=== PATIENT | male | born 1945 | race Caucasian/White ===

== ENCOUNTER → 2018-01-12 12:55 | Outpatient (CLI) | payer MEDICARE, OTHER, SELFPAY ==
--- NOTE | 2018-01-12 | DI.RAD.S_ITS ---
PROCEDURE: XR THORACIC SPINE 3V INDICATIONS: SPINAL STENOSIS TECHNIQUE: 3 views of the thoracic spine were acquired. COMPARISON: [facility], CT, T-SPINE WITHOUT CONTRAST, 02/10/2011, 11:56. FINDINGS: Bones: No fractures or dislocations. No suspicious bony lesions. 12 pairs of ribs are noted, and appear intact where visualized. Soft tissues: No paravertebral stripe thickening. IMPRESSION: There has been mild interval worsening of degenerative disc disease along the thoracic spine when compared to the prior study from 02/10/11 (CT scanning). No compression fracture or subluxation has developed. Overall the degree of degeneration is mild to moderate. Dictated by: Hua Sparks M.D. on 01/12/2018 at 13:25 Approved by: Hua Sparks M.D. on 01/12/2018 at 13:27
== END ==
PROVIDERS: Family Provider Family Medicine; PCP Family Medicine; Visit Provider Chiropractor
DX: M48.04 Spinal stenosis, thoracic region (principal); M51.34 Other intervertebral disc degeneration, thoracic region
CPT/HCPCS: 72072

== ENCOUNTER → 2018-02-12 10:06 | Outpatient (CLI) | payer MEDICARE, OTHER, SELFPAY ==
[2018-02-12 11:20] LABS: Alanine Aminotransferase 33 IU/L (21-72); Albumin Globulin Ratio 1.5 (1.0-2.8); Alkaline Phosphatase 58 U/L (38-126); Aspartate Aminotransferase 20 IU/L (17-59); BUN Creatinine Ratio 21.2 (6-22); Bilirubin Total 0.7 mg/dL (0.2-1.3); Blood Urea Nitrogen 36 mg/dL (9-20); Calcium 9.6 mg/dL (8.4-10.2); Carbon Dioxide 27 mmol/L (22-32); Chloride 105 mmol/L (98-107); Globulin 2.6 g/dL (1.7-4.1); Glucose 136 mg/dL (80-110); HEMOLYSIS < 15 (0-50); Magnesium 2.2 mg/dL (1.6-2.3); Sodium 140 mmol/L (137-145); Total Protein 6.6 g/dL (6.3-8.2)
[2018-02-12 11:24] LABS: Potassium 5.4 mmol/L (3.4-5.1)
[2018-02-15 09:23] LABS: Lipoprofile NMR SEE SEPERATE REPORT
== END ==
PROVIDERS: PCP Family Medicine; Visit Provider Specialist
DX: E78.2 Mixed hyperlipidemia (principal); N28.9 Disorder of kidney and ureter, unspecified; I48.0 Paroxysmal atrial fibrillation
CPT/HCPCS: 36415; 80053; 80299; 83704; 83735

== ENCOUNTER → 2018-02-27 15:38 | Outpatient (CLI) | payer MEDICARE, OTHER, SELFPAY ==
[2018-02-27 18:26] LABS: Blood Urea Nitrogen 30 mg/dL (9-20); Calcium 9.6 mg/dL (8.4-10.2); Carbon Dioxide 28 mmol/L (22-32); Chloride 103 mmol/L (98-107); Estimated Glomerular Filt Rate 46.3 mL/min (>60); Glucose 104 mg/dL (80-110); HEMOLYSIS < 15 (0-50); Potassium 4.9 mmol/L (3.4-5.1); Sodium 141 mmol/L (137-145)
== END ==
PROVIDERS: Family Provider Family Medicine; PCP Family Medicine; Visit Provider Internal Medicine Cardiovascular Disease
DX: N28.9 Disorder of kidney and ureter, unspecified (principal)
CPT/HCPCS: 36415; 80048

== ENCOUNTER → 2018-11-23 10:06 | Outpatient (CLI) | payer MEDICARE, BC, SELFPAY ==
[2018-11-23 11:04] LABS: Reticulocyte Count, Percent 3.8 % (0.87-2.60)
[2018-11-23 11:06] LABS: Hematocrit 37.5 % (41-53); Hemoglobin 12.3 g/dL (13.5-17.5); Mean Corpuscular HGB Conc 32.7 % (30-36); Mean Corpuscular Hemoglobin 30.6 PG (26-34); Mean Corpuscular Volume 93.6 fL (80-100); Platelet Count 96 X10^3/uL (150-400); Red Cell Distribution Width 16.4 % (11.6-14.8); White Blood Cell Count 5.3 X10^3/uL (4.5-11.0)
[2018-11-23 11:10] LABS: Hemoglobin A1C% w Est Avg Glu 6.7 % (4.0-6.0)
[2018-11-23 11:35] LABS: Alanine Aminotransferase 24 IU/L (21-72); Albumin 3.9 g/dL (3.5-5.0); Albumin Globulin Ratio 1.4 (1.0-2.8); Alkaline Phosphatase 58 U/L (38-126); Aspartate Aminotransferase 22 IU/L (17-59); BUN Creatinine Ratio 22.9 (6-22); Bilirubin Total 0.5 mg/dL (0.2-1.3); Blood Urea Nitrogen 32 mg/dL (9-20); Calcium 9.5 mg/dL (8.4-10.2); Carbon Dioxide 26 mmol/L (22-32); Chloride 105 mmol/L (98-107); Globulin 2.7 g/dL (1.7-4.1); Glucose 164 mg/dL (80-110); HEMOLYSIS < 15 (0-50); Potassium 4.7 mmol/L (3.4-5.1); Sodium 140 mmol/L (137-145); Total Protein 6.6 g/dL (6.3-8.2)
[2018-11-23 11:44] LABS: Vitamin D 25 Hydroxy (D3) 54.1 ng/mL (30.0-100.0)
[2018-11-23 12:00] LABS: Ferritin 72.5 ng/mL (17.9-464)
[2018-11-26 10:59] LABS: Lipoprofile NMR SEE SEPERATE REPORT
[2018-11-27 14:53] LABS: Parathyroid Hormone Int 76 pg/mL (14-64)
== END ==
PROVIDERS: PCP Student in an Organized Health Care Education/Training Program; Visit Provider Specialist
DX: E78.2 Mixed hyperlipidemia (principal); I48.0 Paroxysmal atrial fibrillation; N18.9 Chronic kidney disease, unspecified; D64.9 Anemia, unspecified; E11.9 Type 2 diabetes mellitus without complications; N17.9 Acute kidney failure, unspecified
CPT/HCPCS: 36415; 80053; 80299; 82306; 82728; 83036; 83704; 83735; 83970; 85027; 85045

== ENCOUNTER → 2018-12-28 15:03 | Outpatient (CLI) | payer MEDICARE, BC, SELFPAY ==
--- NOTE | 2019-01-04 15:41 | PM.PFT.1 ---
Pulmonary Function Test Referral & Results Date Patient Seen: 12/28/18 Requesting provider: Daquan Ho Results: The spirometry demonstrates an FVC of 1.53 L which is 32% of predicted. The FEV1 was measured at 1.18 L which is 34% of predicted. The FEV1/FVC ratio was 77 which is 105% of predicted. Following the administration of bronchodilator there was a 70% improvement in FEV1 and is 72% improvement in FEF 25-75%. Lung volumes show an SVC of 1.68 L which is 34% of predicted. The diffusing capacity was measured at 18.52 which is 52% of predicted. No hemoglobin value was provided, so no correction for potential anemia could be made, if appropriate. The maximum voluntary ventilation was reduced Interpretation: This study demonstrates severe obstructive lung disease with evidence of benefit following bronchodilator as noted above There is also severe restrictive lung disease based on reduction in SVC There is also moderately severe reduction in diffusing capacity suggesting significant disease of the capillary alveolar level
== END ==
PROVIDERS: PCP Student in an Organized Health Care Education/Training Program; Visit Provider Student in an Organized Health Care Education/Training Program
DX: G47.33 Obstructive sleep apnea (adult) (pediatric) (principal); J44.9 Chronic obstructive pulmonary disease, unspecified; R68.89 Other general symptoms and signs
CPT/HCPCS: 94060; 94726; 94729

== ENCOUNTER → 2019-03-08 08:56 | Outpatient (CLI) | payer MEDICARE, BC, SELFPAY ==
[2019-03-08 09:52] LABS: Alanine Aminotransferase 20 IU/L (21-72); Albumin Globulin Ratio 1.3 (1.0-2.8); Alkaline Phosphatase 59 U/L (38-126); Aspartate Aminotransferase 22 IU/L (17-59); BUN Creatinine Ratio 23.6 (6-22); Bilirubin Total 0.7 mg/dL (0.2-1.3); Blood Urea Nitrogen 33 mg/dL (9-20); Calcium 9.6 mg/dL (8.4-10.2); Carbon Dioxide 28 mmol/L (22-32); Chloride 105 mmol/L (98-107); Cholesterol 97 mg/dL (140-199); Glucose 146 mg/dL (80-110); HDL Cholesterol 30 mg/dL (40-60); HEMOLYSIS < 15 (0-50); LDL Cholesterol Calculated 53 mg/dL (<100); Magnesium 2.1 mg/dL (1.6-2.3); Potassium 4.8 mmol/L (3.4-5.1); Sodium 141 mmol/L (137-145); Triglycerides 72 mg/dL (35-150)
== END ==
PROVIDERS: Family Provider Student in an Organized Health Care Education/Training Program; PCP Student in an Organized Health Care Education/Training Program; Visit Provider Specialist
DX: E78.2 Mixed hyperlipidemia (principal); I48.0 Paroxysmal atrial fibrillation; N28.9 Disorder of kidney and ureter, unspecified
CPT/HCPCS: 36415; 80053; 80061; 83735

== ENCOUNTER → 2019-03-11 13:15 | Outpatient (CLI) | payer MEDICARE, BC, SELFPAY ==
--- NOTE | 2019-03-11 13:21 | DI.CT.S_ITS ---
PROCEDURE: CT LUMBAR SPINE WO CON INDICATIONS: Low back and bilateral leg radicular pain TECHNIQUE: Noncontrast 3 mm thick sections acquired from the T12 level to the sacrum. Sagittal and coronal reformats were constructed. For radiation dose reduction, the following was used: automated exposure control. COMPARISON: [facility], CT, LUMBAR OR SACRAL SPINE WO CONT, 12/09/2010, 11:16. [facility], CR, XR THORACIC SPINE 3V, 01/12/2018, 12:49. FINDINGS: Image quality: Excellent. Bones: This patient has transitional lumbar anatomy. For the purposes of this examination, the transitional level is considered to be L5, which is highly sacralized on the left. By this numbering scheme, there are vestigial ribs at the T12 level. This numbering scheme is chosen to remain consistent with 2011 examination. There is accentuated lumbar lordosis. There is minimal retrolisthesis at T12-L1 and L1-L2. No acute vertebral body compression fractures. No suspicious lytic or blastic bony lesions. Central spinal caliber is of normal overall caliber. No pars defects. T12-L1: Moderate loss of disc height is seen. Vacuum disc phenomenon is seen at this level. Moderate disc bulge is seen. There is a central disc protrusion present. Gjlp-vk-aqnldibw bilateral neural foraminal narrowing is seen. Mild central canal narrowing is seen. When comparison is made with the prior examination, these findings are similar. L1-L2: Moderate loss of disc height is seen. Vacuum disc phenomenon is seen at this level. Moderate generalized disc bulge is seen. Moderate to severe bilateral neural foraminal narrowing is seen. These imaging findings have progressed compared to the prior study. L2-L3: The disc height is well preserved. Moderate generalized disc bulge is seen. Txmg-ix-fynrlelc bilateral neural foraminal narrowing is seen. Moderate central canal narrowing is seen. These imaging findings have progressed compared to the prior study. L3-L4: The disc height is well-preserved. Loss of disc signal is seen at this level. At least moderate disc bulge is seen. Moderate to severe bilateral neural foraminal narrowing is seen. Moderate to severe central canal narrowing is seen. These imaging findings have progressed compared to the prior study. L4-L5: The disc height is well preserved. Moderate disc bulge is seen. Moderate facet hypertrophy is seen, left worse than right. Moderate to severe central canal narrowing is seen. These imaging findings have progressed compared to the prior study. L5-S1: There is a transitional disc seen at this level. A degree of fusion can be seen. Moderate bilateral neural foraminal narrowing is seen. Mild central canal narrowing is seen. When comparison is made with the prior examination, these findings are similar. Soft tissues: No retroperitoneal masses or hematomas. Visualized aorta is normal in caliber. Atherosclerotic calcification is noted. A pacer lead can be seen on the private equity associate image. IMPRESSION: Multiple levels of lumbar spine degenerative change are seen, which have progressed compared to 2011. Incidental note is made of: Transitional lumbar anatomy Pacer device Dictated by: Logan Amador M.D. on 03/11/2019 at 12:58 Approved by: Logan Amador M.D. on 03/11/2019 at 13:05
== END ==
PROVIDERS: PCP Student in an Organized Health Care Education/Training Program; Visit Provider Student in an Organized Health Care Education/Training Program
DX: M47.816 Spondylosis without myelopathy or radiculopathy, lumbar region (principal); M54.42 Lumbago with sciatica, left side; M54.41 Lumbago with sciatica, right side
CPT/HCPCS: 72131

== ENCOUNTER 2019-03-28 13:24 | Day surgery (SDC) | payer MEDICARE, BC, SELFPAY ==
--- NOTE | 2019-03-28 | PATH_ITS ---
[facility] Accession Number: [id number] . 01 Material submitted: . PART A: colon - COLON POLYP AT 100CM PART B: colon - COLON POLYP AT 25CM . 02 Diagnosis: A. Colon, Polyp at 100 cm, Biopsy: Tubular adenoma. . B. Colon, Polyp at 25 cm, Biopsy: Hyperplastic polyp. MRV/04/01/2019 . 02 Electronically signed: . Waleska Romero MD, Pathologist NPI- [id number] . 01 Gross description: . Part A: COLON POLYP AT 100CM: Received in formalin is 1 fragment(s) of huang, soft tissue measuring 0.4 x 0.4 x 0.3 cm submitted entirely in 1 cassette(s) Part B: COLON POLYP AT 25CM: Received in formalin are 2 fragment(s) of huang, soft tissue measuring 0.4 x 0.3 x 0.3 cm to 0.3 x 0.2 x 0.1 cm submitted entirely in 1 cassette(s) /CKI /CKI . 02 Pathologist provided ICD-10: D12.6 . 02 CPT . 447372, [id number] Performed at: 01 [facility] [address], [place], [place] [id number] MD Tejinder Barger MD Phone: [phone] Performed at: 02 [facility] [place] [address] [place], [place] [id number] MD Waleska Romero MD Phone: [phone]
[2019-03-28] MEDS: FLEETS ENEMA 1 EACH PR ×2 (14:04→14:20)
--- NOTE | 2019-03-28 14:07 | SUR.PREOP ---
Output in toilet dark cloudy with many brown flecks, dr ivey informed fleets enema given.
--- NOTE | 2019-03-28 14:43 | PM.HP.1 ---
History of Present Illness History of Present Illness Date Patient Seen: 03/28/19 Time Patient Seen: 14:43 Chief complaint: [id number] Narrative: Patient presents for colorectal screening. They had a previous colonoscopy 10 years ago which was normal. On further history denies any recent gastrointestinal symptoms. No nausea, vomiting, abdominal pain, loss of appetite, unexplained weight loss, change in bowel habits, diarrhea, constipation, melena, hematochezia, or bright red blood per rectum. Patient History Medical History Fatigue (Chronic) Obstructive sleep apnea of adult (Chronic) Pacemaker (Chronic) Surgical History History of cochlear implant History of cochlear implant History of cochlear implant Social History marital status: details: terry Patton, lives in [place] household members: spouse lives independently: Yes caregiver/support person: No housing: house occupational status: previously employed travel history: recent Smoking Status: Former smoker alcohol intake: current substance use type: does not use Family & Social History Social History: household members spouse lives independently Yes caregiver/support person No Tobacco & Substance use: Smoking Status Former smoker alcohol intake current Meds Home Medications and Allergies Home Medications Medication Instructions Recorded Confirmed Type Eliquis 5 mg PO BID #30 11/05/16 03/28/19 Rx flecainide 50 mg PO BID #60 tab 11/05/16 03/28/19 Rx magnesium oxide 400 mg PO DAILY #0 11/05/16 03/28/19 History metoprolol tartrate 25 mg PO BID #0 11/05/16 03/28/19 History calcium carbonate 1,000 mg PO QDAY #0 02/15/17 03/28/19 History cholecalciferol (vitamin D3) 400 u PO Q DAY #0 02/17/17 03/28/19 History [Vitamin D3] docusate sodium 100 mg PO Q DAY #0 02/17/17 03/28/19 History benazepril 10 mg tablet 10 mg PO QDAY #90 tab 02/02/18 03/28/19 Rx simvastatin 20 mg PO Q DAY #90 tab 02/05/18 03/28/19 Rx albuterol sulfate 90 mcg/actuation 1 puff INHALATION Q6H PRN #6.7 gram 01/29/19 03/28/19 Rx aerosol inhaler budesonide 90 mcg/actuation breath 1 inhalation INHALATION BID #1 each 01/29/19 03/06/19 Rx activated powder inhaler [employer] Dream[employer] CPAP #1 ea 03/26/19 03/26/19 History Allergies Allergy/AdvReac Type Severity Reaction Status Date / Time Penicillins [PENICILLINS] Allergy Unknown HIVES Verified 03/06/19 14:33 Review of Systems Review of Systems ROS Unobtainable: All systems reviewed & are unremarkable except as noted in HPI and below Exam Narrative Exam Narrative: General-adult male no acute distress, well nourished HEENT-moist mucous membranes, no scleral icterus Neck-supple with full range of motion, no lymphadenopathy Chest- no labored respirations, clear to auscultation bilaterally Cardiac-regular rate and rhythm Abdomen-soft, nontender, non distended Extremities-no edema, warm well perfused Neurological-alert and oriented x 3. No focal deficits Skin-normal temperature and turgor, no rashes or ulcers Assessment & Plan Assessment and plan (1) Screening for colorectal cancer: Current visit: Yes Status: Acute Assessment & Plan narrative: Patient is requiring colorectal screening. Colonoscopy is recommended. Technical details were discussed. Risks, benefits, alternatives explained. Risks including but not limited to sedation, aspiration, bleeding, pain, missed lesion, incomplete examination, need for further radiographic studies, colonic perforation, need for major abdominal surgery, and all attendant risks major surgery were discussed at length. All questions were answered to their satisfaction, and they voiced understanding.
[2019-03-28] MEDS: SODIUM CHLORIDE 0.9% 1,000 ML 200 ML IV (14:45)
[2019-03-28 14:53] VITALS: BP 105/67; PULSE 60; RESP 20; TEMP 36.6; O2SAT 97; BMI 46.7
--- NOTE | 2019-03-28 15:07 | SUR.PREOP ---
still not clear after first enema, 2nd on given, output still coudy but better and still with brown flecks. Dr. Montanez aware.
[2019-03-28] MEDS: MIDAZOLAM 5 MG/5 ML VIAL IV (16:13)
[2019-03-28] MEDS: fentaNYL 250 MCG/5 ML INJ IV (16:13)
--- NOTE | 2019-03-28 16:14 | PM.OP.ENDO ---
Operative Date/Time/Diagnoses Date of procedure: 03/28/19 Time of procedure: 16:14 Pre-op diagnosis: Screening colonoscopy Post-op diagnosis: same Procedure & Clinicians Study performed: Colonoscopy Same procedure as scheduled: Yes Indications: 73-year-old male presents for screening colonoscopy. The last colonoscopy was 10 years ago a normal per the patient. Surgeon: Delfino Montanez Procedure Notes SCOAP/Timeout: Performed Procedure in detail: Digital rectal exam was performed which demonstrated no masses. The scope was carefully inserted into the rectum. Scope was advanced through the colon. The ileocecal valve was reached. The scope was then carefully withdrawn. We identified a polyp at 100 cm which was benign in appearance in less than 1 cm was biopsied. The 2nd colonic polyp at 25 cm from the anal verge was biopsied this polyp was also less than 1 cm and benign appearance. The scope was then retroflexed within the rectum which was normal in its appearance. The scope was then carefully withdrawn. The quality of the prep was medium. Patient tolerated the procedure well Scope withdrawal time: 13 Sedation minutes: 36 Findings: polyp Specimen(s): other (polyp 100 cm, polyp 25 cm) Complications: none Impression: Polyps Post-procedure Recommendations: Colonscopy in 5 years Disposition: same day surgery
[2019-03-28 16:18] VITALS: BP 108/61; PULSE 62; RESP 18; TEMP 36.4; O2SAT 94
[2019-03-28 16:27] VITALS: BP 122/71; PULSE 61; RESP 12; TEMP 36.8; O2SAT 94
[2019-03-28 16:55] VITALS: BP 97/62; PULSE 62; RESP 16; TEMP 36.3; O2SAT 95
[2019-03-28 17:05] VITALS: BP 109/66; PULSE 62; RESP 18; TEMP 36.6; O2SAT 95
== END 2019-03-28 17:17 | disposition home or self-care (01) ==
PROVIDERS: PCP Student in an Organized Health Care Education/Training Program; Visit Provider Surgery
PROC: 0DJD8ZZ Inspection of Lower Intestinal Tract, Via Natural or Artificial Opening Endoscopic (ICD-10-PCS; CPT 45378; principal; 2019-03-28 15:00)
DX: Z12.11 Encounter for screening for malignant neoplasm of colon (principal); D12.6 Benign neoplasm of colon, unspecified; G47.33 Obstructive sleep apnea (adult) (pediatric); Z95.0 Presence of cardiac pacemaker
CPT/HCPCS: 45380; 99152; 99153; J2250; J3010

== ENCOUNTER → 2019-12-19 10:59 | Outpatient (CLI) | payer MEDICARE, BC, SELFPAY ==
[2019-12-19 13:24] LABS: Alanine Aminotransferase 25 IU/L (<50); Albumin 4.2 g/dL (3.5-5.0); Albumin Globulin Ratio 1.4 (1.0-2.8); Alkaline Phosphatase 62 U/L (38-126); Aspartate Aminotransferase 31 IU/L (17-59); Bilirubin Total 0.8 mg/dL (0.2-1.3); Blood Urea Nitrogen 34 mg/dL (9-20); Calcium 9.7 mg/dL (8.4-10.2); Carbon Dioxide 29 mmol/L (22-32); Chloride 105 mmol/L (98-107); Estimated Glomerular Filt Rate 46.7 mL/min (>60); Globulin 2.9 g/dL (1.7-4.1); Glucose 130 mg/dL (80-110); HEMOLYSIS < 15 (0-50); Magnesium 2.2 mg/dL (1.6-2.3); Potassium 5.3 mmol/L (3.4-5.1); Sodium 140 mmol/L (137-145); Total Protein 7.1 g/dL (6.3-8.2)
[2019-12-23 08:08] LABS: Cholesterol, Total 102 mg/dL (100-199); HDL-Cholesterol 39 mg/dL (>39); HDL-Particle (Total) 23.6 umol/L (>=30.5); Historical Reading Comment: (.); LDL Particle 616 nmol/L (<1000); LDL-Cholsterol 44 mg/dL (0-99); LP-IR Score 54 (<=45); Small LDL- Particle 408 nmol/L (<=527); Triglycerides 94 mg/dL (0-149)
== END ==
PROVIDERS: PCP Student in an Organized Health Care Education/Training Program; Referring Provider Specialist; Visit Provider Specialist
DX: I48.0 Paroxysmal atrial fibrillation (principal); E78.2 Mixed hyperlipidemia
CPT/HCPCS: 36415; 80053; 80061; 80299; 83704; 83735

== ENCOUNTER → 2020-01-14 09:44 | Outpatient (CLI) | payer MEDICARE, BC, SELFPAY ==
[2020-01-14 12:03] LABS: BUN Creatinine Ratio 24.1 (6-22); Blood Urea Nitrogen 34 mg/dL (9-20); Calcium 9.6 mg/dL (8.4-10.2); Carbon Dioxide 29 mmol/L (22-32); Chloride 108 mmol/L (98-107); Estimated Glomerular Filt Rate 49.4 mL/min (>60); Glucose 159 mg/dL (80-110); HEMOLYSIS < 15 (0-50); Potassium 4.8 mmol/L (3.4-5.1); Sodium 141 mmol/L (137-145)
== END ==
PROVIDERS: PCP Student in an Organized Health Care Education/Training Program; Referring Provider Nurse Practitioner; Visit Provider Nurse Practitioner
DX: N18.9 Chronic kidney disease, unspecified (principal); E78.2 Mixed hyperlipidemia
CPT/HCPCS: 36415; 80048

== ENCOUNTER → 2020-05-26 09:31 | Outpatient (CLI) | payer MEDICARE, BC, SELFPAY ==
--- NOTE | 2020-05-26 | DI.ECHO.S_ITS ---
[place] [facility]---------+ [facility] +---------+ : : [id number] : : : : [id number] : : : : Phone: [phone] Echocardiogram Report + + :Name: FRANCIS NG Study Date: 05/26/2020 Height: 72 in : :[facility] Weight: 334 lb : : Gender: Male BSA: 2.6 m2 : :: 1945 Age: 75 yrs BP: 126/81 mmHg: :Reason For Study: DYSPNEA : :Ordering Physician: MATHEW, : :DIVINE WEIR Performed By: Rhina Villegas : :Referring: DIVINE CARMONA : + + Interpretation Summary Left ventricular systolic function appears normal with an estimated ejection fraction of 60 to 65% without any focal wall motion abnormality and appears slightly more dynamic compared to the previous study. There is borderline LVH but probable normal diastolic function and normal left ventricular filling pressures. The right ventricle is borderline enlarged with normal systolic function and grossly appears unchanged from the previous study. Right ventricular systolic pressure is estimated at 48 mmHg based on a CVP of around 15 mmHg, the latter unchanged from the previous study. There is mild left atrial enlargement that is slightly smaller compared to the previous study, and borderline right atrial enlargement. There is no significant valvular abnormality. The ascending aorta and aortic arch are mildly enlarged but likely similar to the previous study. Procedure: A two-dimensional transthoracic echocardiogram with color flow and Doppler was performed. The study quality was technically adequate. There is no prior echocardiogram noted for this patient. Comparison is made with the echocardiogram of 12/06/2016. The patient was in sinus rhythm with heart rates between 60-62 bpm during the exam. Left Ventricle: The left ventricle is normal in size. The estimated left ventricular end diastolic volume is 100 ml. There is borderline concentric left ventricular hypertrophy. Left ventricular systolic function appears normal without focal wall motion abnormalities. The ejection fraction is estimated to be 55-60%. This is slightly more dynamic compared to the previous study. Diastolic parameters suggest probable normal left ventricular diastolic function and normal filling pressures. Right Ventricle: The right ventricle is not well visualized. The right ventricle is borderline dilated. The right ventricular systolic function is normal. This is unchanged compared to the previous study. Atria: The left atrium is mildly dilated. The left atrium has mildly decreased in size since the prior echo exam. The right atrium is borderline dilated. There is no Doppler evidence for an interatrial shunt. Mitral Valve: The mitral valve is normal in structure and function. There is trace mitral regurgitation. Aortic Valve: The aortic valve is trileaflet. The aortic valve is slightly calcified. The aortic valve opens well. There is no aortic valve stenosis. No aortic regurgitation is present. Tricuspid Valve: The tricuspid valve is normal in structure and function. There is trace tricuspid regurgitation. The right ventricular systolic pressure is estimated to be at least 48 mmHg based on an estimated right atrial pressure of 15 mm Hg. Pulmonic Valve: The pulmonic valve leaflets are thin and pliable; valve motion is normal. There is trace pulmonic regurgitation. There is no significant valvular heart disease. Great Vessels: The aortic root is normal size. The ascending aorta is mildly enlarged. The aortic arch is mildly enlarged. This is unchanged compared to the previous study. The IVC is dilated (diameter is greater than 2.1 cm) and it collapses less than 50% with a sniff. This suggests a high right atrial pressure of 15 mm Hg. Pericardium/ Pleura There is no pericardial effusion. There is an anterior echo-free space consistent with a fat pad. There is no pleural effusion. MMode/2D Measurements & Calculations LVIDd: 5.8 cm LVOT diam: 2.1 cm LVIDs: 3.6 cm Ao root diam: 3.5 cm FS: 36.7 % asc Aorta Diam: 3.8 cm EPSS: 0.46 cm Ao Arch Diam (Prox Trans): 3.5 cm IVSd: 1.1 cm LVPWd: 1.0 cm LV knight. diameter/BSA (cm/m^2): 2.2 LV sys. diameter/BSA (cm/m^2): 1.4 LA A2 area: 29.0 cm2 RA long axis: 5.7 cm LA A4 area: 24.1 cm2 RA area: 22.5 cm2 LA length (vol): 6.2 cm RA vol: 76.3 ml LA vol: 95.8 ml RA : 28.8 ml/m2 LA vol index: 36.2 ml/m2 IVC diam: 2.8 cm RVD1 (basal): 4.1 cm TAPSE: 2.3 cm Doppler Measurements & Calculations Ao V2 max: 132.8 cm/sec LVOT Max Eddie: 91.7 cm/sec Ao V2 mean: 88.8 cm/sec LV V1 max P.4 mmHg Ao max P.1 mmHg LV V1 VTI: 24.6 cm Ao mean P.6 mmHg KRZYSZTOF(I,D): 2.9 cm2 Ao V2 VTI: 29.7 cm KRZYSZTOF(V,D): 2.4 cm2 sev ratio: 0.83 KRZYSZTOF indexed to BSA (cm^2/m^2): 1.1 MV E max eddie: 67.8 cm/sec TR max eddie: 276.0 cm/sec MV A max eddie: 52.2 cm/sec TR max P.3 mmHg MV E/A: 1.3 PA V2 max: 62.5 cm/sec Med Peak E' Eddie: 7.3 cm/sec PA V2 mean: 40.9 cm/sec E/E' med: 9.3 PA mean P.77 mmHg Lat Peak E' Eddie: 9.4 cm/sec PA Accel Time: 0.07 sec E/E' lat: 7.2 E/e' average: 8.2 MV dec time: 0.22 sec SV(LVOT): 86.9 ml Reading Physician:05:34 PM
== END ==
PROVIDERS: PCP Student in an Organized Health Care Education/Training Program; Referring Provider Nurse Practitioner; Visit Provider Nurse Practitioner
DX: R06.00 Dyspnea, unspecified (principal); I77.89 Other specified disorders of arteries and arterioles
CPT/HCPCS: 93306

== ENCOUNTER → 2020-06-30 16:03 | Outpatient (CLI) | payer MEDICARE, BC, SELFPAY ==
[2020-06-30 18:56] LABS: Alanine Aminotransferase 23 IU/L (<50); Albumin 3.9 g/dL (3.5-5.0); Albumin Globulin Ratio 1.6 (1.0-2.8); Alkaline Phosphatase 62 U/L (38-126); Aspartate Aminotransferase 28 IU/L (17-59); BUN Creatinine Ratio 28.9 (6-22); Bilirubin Total 0.5 mg/dL (0.2-1.3); Blood Urea Nitrogen 39 mg/dL (9-20); Calcium 9.3 mg/dL (8.4-10.2); Carbon Dioxide 29 mmol/L (22-32); Chloride 106 mmol/L (98-107); Estimated Glomerular Filt Rate 51.8 mL/min (>60); Globulin 2.5 g/dL (1.7-4.1); Glucose 93 mg/dL (80-110); HEMOLYSIS < 15 (0-50); Potassium 5.2 mmol/L (3.4-5.1); Sodium 139 mmol/L (137-145); Total Protein 6.4 g/dL (6.3-8.2)
== END ==
PROVIDERS: PCP Student in an Organized Health Care Education/Training Program; Visit Provider Specialist
DX: N18.9 Chronic kidney disease, unspecified (principal); E78.2 Mixed hyperlipidemia
CPT/HCPCS: 36415; 80053

== ENCOUNTER → 2020-10-20 13:04 | Outpatient (CLI) | payer MEDICARE, BC, SELFPAY ==
--- NOTE | 2020-10-20 13:10 | DIET.PN ---
Addendum entered by Leyda Vega 12/01/20 16:56: Pt holds new diagnosis of Chronic Kidney Disease stage 3, pts calorie and protein goals reflect this diagnosis. Nutrition Diagnosis: altered nutrition related laboratory values (eGFR, Cr) r/t nutrition related knowledge deficit aeb eGFR 51.8, Cr 1.35, pt holds new dx CKD3, pt referred by PCP to nutrition for help with safe, renal friendly weight loss to prepare for orthopedic surgery. Original Note: Dietary Progress Note Assessment: has spinal stenosis, surgeon will not operate until body weight is 295# or less currently around 337#, did get down to 327# but quickly gained 10#. PCP concerned about fluid retentions and getting lab work done and meeting c multi sensor operator December 17. Pt eats virtually no processed foods, he likes to cook and eat different things. Pt using [email or web address] and is a numbers gamaliel likes to put numbers in. Usual Day: wakes 8am makes pot coffee Breakfast: every other day makes oatmeal 1.5c adds milk, 1tsp brown sugar alternate days 3 fried eggs cooked in butter c 2 pieces toast on monday makes waffles (butter and syrup) or hashbrowns and eggs takes nap Lunch: doesn't usually eat lunch 5pm 1 cup [place] chex meal c 1 brown sukhdev Dinner: Tuesdays papa murphys pizza, spaghetti, meat potato vegetable, fish once per week with rice and vegetable was waking up at 2am to eat- usually tortilla c youngblood and chicken breast c fizzy water reports not being good water drinker Pt has PT appts and is doing some exercises while brushing teeth but should be riding stationary bike for 5 min at a time but doesn't always do this. HT: 6' WT: 337# BMI: 43 Labs: eGFR 51.8 L, Cr 1.35 H, A1c 6.7 RD Impression: Over the past several months pt has downloaded [email or web address] and was using it with some success set at 2500kcals. Pt eats a diet which is moderately processed but mostly home cooked, he likes vegetables and variety. Pt is overconsuming carbohydrate portions without pairing with protein or f/v such as 1.5c oatmeal for breakfast or daily snack of chex mix c a beer. Pts limited mobility and spinal stenosis limits his physical activity. Pt given new parameters for 2300 kcals/d and 120g PRO (0.8g/kg per CKD3) with focus on plate balance. This with continued bouts of PT and exercise (5 min on bike as prescribed) should give pt the 1-2#/w loss that he desires. Nutrition Diagnosis: undesirable food choices r/t nutrition related knowledge deficit aeb pt focused solely on caloric intake without regard to carbs/proteins/micronutrients for adequate body function, pt has hx of yoyo dieting, BMI 43, pt cannot have spinal surgery without losing 40#. Interventions: 1. Calculated pts kcal needs to lose 1-2#/w at 2,300. Pt will set this in his myfitness pal. 2. Introduced pt to plate balance where 1/4 pro, 1/4 cho, and 1/2 F/non-starchy veg. Using food models, problem solved several meals and snacks including reducing oatmeal portion and adding ground flaxseed, chopped nuts, and frozen berries. 3. Provided pt structured cardiometabolic meal plan for ideas on types and portions of food to eat. Because pt is an adventurous eater and likes to cook, this is preferred to specific meal ideas. 4. Provided pt variety of handouts to support his efforts includinkcal snack ideas, anti-inflammatory diet info from , and FOTM-seeds. 5. Encouraged pt to become more structured on his physical activity trying for 5 minutes on stationary bike in am and 5min in pm per PT reccs. This will help him build lean body mass to support his core and metabolism. Diet Order: anti-inflammatory EER: 2300kcals, 120g PRO Monitoring/Evaluations: pt will f/u as needed
[2020-10-20 13:32] VITALS: BMI 45.7
== END ==
PROVIDERS: PCP Student in an Organized Health Care Education/Training Program; Referring Provider Student in an Organized Health Care Education/Training Program; Visit Provider Student in an Organized Health Care Education/Training Program
DX: M48.061 Spinal stenosis, lumbar region without neurogenic claudication (principal); E66.9 Obesity, unspecified; Z68.41 Body mass index [BMI] 40.0-44.9, adult; Z71.3 Dietary counseling and surveillance
CPT/HCPCS: 97802

== ENCOUNTER → 2020-10-20 13:05 | Outpatient (CLI) | payer MEDICARE, BC, SELFPAY ==
[2020-10-20 15:50] LABS: BUN Creatinine Ratio 29.6 (6-22); Blood Urea Nitrogen 40 mg/dL (9-20); Calcium 9.8 mg/dL (8.4-10.2); Carbon Dioxide 31 mmol/L (22-32); Chloride 103 mmol/L (98-107); Estimated Glomerular Filt Rate 51.8 mL/min (>60); Glucose 101 mg/dL (80-110); HEMOLYSIS 17 (0-50); Potassium 4.9 mmol/L (3.4-5.1); Sodium 139 mmol/L (137-145)
== END ==
PROVIDERS: PCP Student in an Organized Health Care Education/Training Program; Referring Provider Student in an Organized Health Care Education/Training Program; Visit Provider Student in an Organized Health Care Education/Training Program
DX: E11.9 Type 2 diabetes mellitus without complications (principal); N18.9 Chronic kidney disease, unspecified; M48.061 Spinal stenosis, lumbar region without neurogenic claudication; E66.9 Obesity, unspecified; Z68.41 Body mass index [BMI] 40.0-44.9, adult; Z71.3 Dietary counseling and surveillance
CPT/HCPCS: 36415; 80048; 97802

== ENCOUNTER → 2020-12-18 15:42 | Outpatient (CLI) | payer MEDICARE, BC, SELFPAY ==
[2020-12-18 16:49] LABS: Add Manual Diff / Slide Review NO; Basophils Absolute Auto 100 /uL (0-100); Basophils Percent Auto 1.4 % (0-2); Eosinophils Absolute Auto 100 /uL (0-450); Eosinophils Percent Auto 1.2 % (2-4); Hematocrit 41.7 % (41-53); Hemoglobin 13.4 g/dL (13.5-17.5); Lymphocytes Absolute Auto 900 /uL (1100-4500); Lymphocytes Percent Auto 14.4 % (25-40); Mean Corpuscular HGB Conc 32.1 % (30-36); Mean Corpuscular Volume 93.3 fL (80-100); Monocytes Absolute Auto 200 /uL (0-900); Neutrophils Absolute Auto 4800 /uL (1500-7000); Platelet Count 88 X10^3/uL (150-400); Red Blood Cell Count 4.47 X10^6/uL (4.5-5.9); White Blood Cell Count 5.9 X10^3/uL (4.5-11.0)
[2020-12-18 17:04] LABS: HEMOLYSIS < 15 (0-50)
[2020-12-18 17:05] LABS: BUN Creatinine Ratio 24.3 (6-22); Blood Urea Nitrogen 33 mg/dL (9-20); Calcium 9.5 mg/dL (8.4-10.2); Carbon Dioxide 28 mmol/L (22-32); Chloride 103 mmol/L (98-107); Estimated Glomerular Filt Rate 51.4 mL/min (>60); Glucose 131 mg/dL (80-110); Phosphorous 3.6 mg/dL (2.3-3.7); Potassium 4.8 mmol/L (3.4-5.1); Sodium 140 mmol/L (137-145)
[2020-12-18 17:46] LABS: Vitamin D 25 Hydroxy (D3) 57.4 ng/mL (30.0-100.0)
[2020-12-18 17:58] LABS: TSH w/ Reflex to FT4 1.19 uIU/mL (0.47-4.68)
[2020-12-19 05:42] LABS: Parathyroid Hormone Int 93 pg/mL (15-65)
[2020-12-19 17:27] LABS: Free Kappa Lt Chains, Serum 39.8 mg/L (3.3-19.4); Free Lambda Lt Chains,Serum 25.2 mg/L (5.7-26.3)
[2020-12-22 15:39] LABS: Albumin 3.8 g/dL (2.9-4.4); Alpha-1-Globulin 0.3 g/dL (0.0-0.4); Alpha-2-Globulin 0.7 g/dL (0.4-1.0); Globulin Total 2.8 g/dL (2.2-3.9); Immunoglobulin A, Serum 136 mg/dL (61-437); Immunoglobulin G,Serum 984 mg/dL (603-1613); Immunoglobulin M, Serum 56 mg/dL (15-143); Protein, Total 6.6 g/dL (6.0-8.5)
== END ==
PROVIDERS: PCP Student in an Organized Health Care Education/Training Program; Referring Provider Internal Medicine Nephrology; Visit Provider Internal Medicine Nephrology
DX: R60.9 Edema, unspecified (principal); N18.31 Chronic kidney disease, stage 3a
CPT/HCPCS: 36415; 80069; 82306; 82784; 83883; 83970; 84155; 84165; 84443; 85025; 86334

== ENCOUNTER → 2020-12-23 10:46 | Outpatient (CLI) | payer MEDICARE, BC, SELFPAY ==
--- NOTE | 2020-12-23 11:40 | PM.TREADMILL ---
Cardiac Stress Test Report Referral & Results Date Patient Seen: 12/23/20 Time Patient Seen: 11:40 Requesting provider: Luciano Cruz Indication: paroxysmal atrial fibrillation Rest ECG: atrial paced rhythm Procedure Note: After Lexsican injection had minimal dyspnea; no chest discomfort No significant ST changes on EKG after Lexiscan injection No ectopy Impression: Normal Lexsican stress test Please note: Actual ECG tracings can be found in the PACS system.
--- NOTE | 2020-12-24 18:21 | DI.NM.S_ITS ---
PROCEDURE PERFORMED: Pharmacologic vasodilator stress and rest myocardial perfusion imaging with gating to assess ejection fraction and regional wall motion. DATE OF SERVICE: December 23, 2020 ORDERING PROVIDER: Luciano Cruz MD INDICATIONS: The patient is a 75-year-old obese male with paroxysmal atrial fibrillation, on flecainide, who requires periodic survey for ischemic heart disease. CARDIAC STRESS: Per protocol, 0.4 mg of ragadenosine was injected with a normal hemodynamic response. He had no chest discomfort. His resting ECG shows atrially paced rhythm with [place] conduction with normal ST segments. There are no significant ST-segment shifts or arrhythmias with stress. Per protocol, 25.3 millicuries of technetium-99m Myoview was injected and he was imaged 15 minutes later using a gated SPECT acquisition protocol. The following day, he was reinjected with an additional 25.8 millicuries of technetium-99m Myoview and imaged 30 minutes later using a gated SPECT acquisition protocol. FINDINGS: RAW DATA: There is marginal left ventricular tracer uptake because of his obesity with fairly poor image quality. There is clear diaphragmatic attenuation with some shadowing of the inferior wall by the spleen. Unfortunately, he was unable to lay prone to assess for diaphragmatic attenuation. His lung heart ratio was normal at 0.35 with a normal TID ratio of 1.06. QUANTITATED GATED SPECT: Post-stress ejection fraction is estimated at 65% without any focal wall motion abnormality and specifically the inferior wall appears to have normal contractility. The resting ejection fraction is estimated at 67% with mildly increased left ventricular volumes with a resting end-diastolic volume of 163 mL. MYOCARDIAL PERFUSION SCAN: Post-stress perfusion imaging shows a mild perfusion defect at the base of the inferior wall, extending somewhat into the mid inferior wall, but excluding the distal inferior wall and is in a pattern consistent with diaphragmatic attenuation artifact, although the prone images are not available for assessment. There are no other perfusion defects. The resting images show an identical perfusion pattern without any areas of improvement. IMPRESSION: 1. Probable normal myocardial perfusion study. 2. Mild fixed proximal to mid inferior wall perfusion defect that likely reflects diaphragmatic attenuation artifact given the absence of any wall motion abnormality in this area, but a previous nontransmural infarction cannot be entirely excluded. There is no evidence for any significant myocardial ischemia. 3. Normal left ventricular systolic function without any focal wall motion abnormality, and specifically the inferior wall appears to have normal contractility. Left ventricular volumes are mildly increased with a resting end- diastolic volume of 163 mL, likely reflecting his morbid obesity. 4. No angina or ECG evidence of ischemia with pharmacologic vasodilator stress. He was in a paced atrial rhythm without any arrhythmias. Jovan Rodriguez - DAMEON/neo/nilda doc#: [id number]/job#: [id number] dd: 12/24/2020 16:32:00 dt: 12/24/2020 17:23:00 DICTATING MD/COPIES TO: Luciano Cruz MD; Luciano Cruz MD COPIES MNE: GRANT;
== END ==
PROVIDERS: PCP Student in an Organized Health Care Education/Training Program; Referring Provider Specialist; Visit Provider Specialist
DX: I48.91 Unspecified atrial fibrillation (principal)
CPT/HCPCS: 78452; 93017; A9502; J2785

== ENCOUNTER → 2021-01-04 09:12 | Outpatient (CLI) | payer MEDICARE, BC, SELFPAY ==
[2021-01-04 10:45] LABS: Alanine Aminotransferase 18 IU/L (<50); Albumin 3.8 g/dL (3.5-5.0); Albumin Globulin Ratio 1.5 (1.0-2.8); Alkaline Phosphatase 54 U/L (38-126); Aspartate Aminotransferase 26 IU/L (17-59); BUN Creatinine Ratio 22.4 (6-22); Bilirubin Total 0.9 mg/dL (0.2-1.3); Blood Urea Nitrogen 30 mg/dL (9-20); Calcium 9.4 mg/dL (8.4-10.2); Carbon Dioxide 31 mmol/L (22-32); Chloride 104 mmol/L (98-107); Estimated Glomerular Filt Rate 52.3 mL/min (>60); Globulin 2.6 g/dL (1.7-4.1); Glucose 112 mg/dL (80-110); HEMOLYSIS < 15 (0-50); Magnesium 2.3 mg/dL (1.6-2.3); Potassium 4.8 mmol/L (3.4-5.1); Sodium 141 mmol/L (137-145); Total Protein 6.4 g/dL (6.3-8.2)
[2021-01-06 07:43] LABS: Cholesterol, Total 103 mg/dL (100-199); HDL-Cholesterol 43 mg/dL (>39); HDL-Particle (Total) 26.2 umol/L (>=30.5); LDL Particle 735 nmol/L (<1000); LDL Size 20.7 nm (>20.5); LDL-Cholsterol 46 mg/dL (0-99); LP-IR Score 43 (<=45); Small LDL- Particle 421 nmol/L (<=527); Triglycerides 61 mg/dL (0-149)
== END ==
PROVIDERS: PCP Student in an Organized Health Care Education/Training Program; Referring Provider Specialist; Visit Provider Specialist
DX: E78.2 Mixed hyperlipidemia (principal); I48.0 Paroxysmal atrial fibrillation
CPT/HCPCS: 36415; 80053; 80061; 80299; 83704; 83735

== ENCOUNTER → 2021-01-15 12:40 | Outpatient (CLI) | payer MEDICARE, BC, SELFPAY ==
--- NOTE | 2021-01-15 | DI.US.S_ITS ---
PROCEDURE: US RENAL COMPLETE INDICATIONS: Chronic kidney disease, stage 3a TECHNIQUE: Real-time scanning was performed of the kidneys and bladder, with image documentation. COMPARISON: None. FINDINGS: Kidneys: Kidneys are normal in size. Right kidney measures 10.4 cm long; left kidney measures 11.2 cm long. Right renal cortical thickness is 1.4 cm; left renal cortical thickness is 0.9 cm. Renal cortical echotexture is normal. No hydronephrosis or nephrolithiasis. No suspicious solid mass lesions. 3.7 x 3.3 x 3.8 and 3.8 x 3.3 x 3.8 centimeter right renal cysts. Bladder: Pre-void bladder volume is 221 mL. Post-void residual is 0 mL. Pre-void images demonstrate no intraluminal masses or stones. On pre-void images, both the right and left ureteral jets are noted with color Doppler interrogation. (Of note, ureteral jets may not be detectable in up to 25% of cases due to insufficient differences in specific gravity between ureteral and bladder urine). Miscellaneous: No free pelvic fluid. IMPRESSION: 1. Mild left renal cortical thinning. 2. No hydronephrosis. 3. Right renal cysts. Dictated by: Pamela Joel MD, PhD on 01/15/2021 at 15:24 Approved by: Pamela Joel MD, PhD on 01/15/2021 at 15:58
[2021-01-15 13:59] LABS: BUN Creatinine Ratio 25.3 (6-22); Blood Urea Nitrogen 43 mg/dL (9-20); Calcium 9.7 mg/dL (8.4-10.2); Carbon Dioxide 33 mmol/L (22-32); Chloride 102 mmol/L (98-107); Estimated Glomerular Filt Rate 39.7 mL/min (>60); Glucose 142 mg/dL (80-110); HEMOLYSIS < 15 (0-50); Potassium 4.3 mmol/L (3.4-5.1); Sodium 141 mmol/L (137-145)
== END ==
PROVIDERS: PCP Student in an Organized Health Care Education/Training Program; Referring Provider Internal Medicine Nephrology; Visit Provider Internal Medicine Nephrology
DX: N18.31 Chronic kidney disease, stage 3a (principal); N28.1 Cyst of kidney, acquired
CPT/HCPCS: 36415; 76770; 80048

== ENCOUNTER → 2021-01-27 14:58 | Outpatient (CLI) | payer MEDICARE, BC, SELFPAY ==
[2021-01-27 16:35] LABS: Albumin 4.4 g/dL (3.5-5.0); BUN Creatinine Ratio 25.5 (6-22); Blood Urea Nitrogen 42 mg/dL (9-20); Calcium 9.6 mg/dL (8.4-10.2); Carbon Dioxide 31 mmol/L (22-32); Chloride 102 mmol/L (98-107); Estimated Glomerular Filt Rate 41.1 mL/min (>60); Glucose 104 mg/dL (80-110); HEMOLYSIS < 15 (0-50); Phosphorous 3.7 mg/dL (2.3-3.7); Potassium 4.8 mmol/L (3.4-5.1); Sodium 141 mmol/L (137-145)
== END ==
PROVIDERS: PCP Student in an Organized Health Care Education/Training Program; Referring Provider Internal Medicine Nephrology; Visit Provider Internal Medicine Nephrology
DX: N18.30 Chronic kidney disease, stage 3 unspecified (principal)
CPT/HCPCS: 36415; 80069

== ENCOUNTER → 2021-02-25 13:43 | Outpatient (CLI) | payer MEDICARE, BC, SELFPAY ==
[2021-02-25 15:24] LABS: Albumin 3.8 g/dL (3.5-5.0); BUN Creatinine Ratio 27.2 (6-22); Blood Urea Nitrogen 44 mg/dL (9-20); Calcium 9.7 mg/dL (8.4-10.2); Carbon Dioxide 30 mmol/L (22-32); Chloride 104 mmol/L (98-107); Glucose 97 mg/dL (80-110); HEMOLYSIS < 15 (0-50); Phosphorous 3.4 mg/dL (2.3-3.7); Potassium 4.3 mmol/L (3.4-5.1); Sodium 142 mmol/L (137-145)
== END ==
PROVIDERS: PCP Student in an Organized Health Care Education/Training Program; Referring Provider Internal Medicine Nephrology; Visit Provider Internal Medicine Nephrology
DX: N18.32 Chronic kidney disease, stage 3b (principal)
CPT/HCPCS: 36415; 80069

== ENCOUNTER → 2021-03-19 10:15 | Outpatient (CLI) | payer MEDICARE, BC, SELFPAY ==
--- NOTE | 2021-03-19 10:16 | DI.CT.S_ITS ---
PROCEDURE: CT LUMBAR SPINE WO CON INDICATIONS: Low back pain with radicular symptoms TECHNIQUE: Noncontrast 3 mm thick sections acquired from the T12 level to the sacrum. Sagittal and coronal reformats were constructed. For radiation dose reduction, the following was used: automated exposure control. COMPARISON: CT, ANGIO CHEST ABDOMEN PELVIS, 02/23/2017, 18:26. [facility], CT, CT LUMBAR SPINE WO CON, 03/11/2019, 13:25. FINDINGS: Image quality: Excellent. Bones: Transitional anatomy is present with L5 demonstrating sacralized to the left. Vertebral bodies are labeled 1-5 and are in keeping with prior exam. There is trace retrolisthesis of L1 on L2, L2 on L3, L3 on L4. No acute vertebral body compression fractures. No suspicious lytic or blastic bony lesions. No pars defects. Multilevel small non bridging anterior osteophytes are present within the lumbar spine. Partially bridging anterior osteophytes are noted at T11-12, T12-L1. Multilevel moderate to severe disc space narrowing is present most severe at L5-S1. Vacuum disc is present at L2-3. Mild disc bulges are present at L1-L2, L2-3, L3-4, L4-5, L5-S1. [id number] spinal stenosis L1-2, moderate to severe L2-3, L3-4, L4-5, L5-S1. Moderate bilateral foraminal narrowing L1-2, moderate to severe bilateral L2-3 mildly progressive, severe left and moderate to severe right L3-4 mildly progressive on the left, moderate to severe bilateral L4-5 left greater than right, moderate to severe right and moderate left at L5-S1. Facet and ligmentum flavum hypertrophy. Soft tissues: Partially visualized masslike low-attenuation structures noted within the right kidney appearing to correspond to cyst identified prior exams. Visualized aorta is normal in caliber. IMPRESSION: 1. Multilevel degenerative changes are present, with areas of progressive as above. 2. Multilevel spinal stenosis predominately secondary to disc bulges, with contributing effect of facet/ligamentum flavum hypertrophy. 3. Multilevel foraminal narrowing predominately secondary to facet/ligamentum flavum hypertrophy most severe at L3-4. Dictated by: Amada Lutz M.D. on 03/19/2021 at 13:14 Approved by: Amada Lutz M.D. on 03/19/2021 at 14:25
== END ==
PROVIDERS: PCP Student in an Organized Health Care Education/Training Program; Referring Provider Student in an Organized Health Care Education/Training Program; Visit Provider Student in an Organized Health Care Education/Training Program
DX: M48.061 Spinal stenosis, lumbar region without neurogenic claudication (principal); M48.07 Spinal stenosis, lumbosacral region; M47.26 Other spondylosis with radiculopathy, lumbar region; M47.27 Other spondylosis with radiculopathy, lumbosacral region
CPT/HCPCS: 72131